=== PATIENT | female | born 1950 | race Caucasian/White ===

== ENCOUNTER → 2018-10-06 | Outpatient (CLI) | payer MEDICARE ==
[~2018-10-06] MED LIST: ATOR10TA69 PO; CHOL200074 PO; CITRACAL PO; KRIL500C PO; LISI10TA7 PO; MILK175C5 PO; MULT-1250 PO; TIOT18CA3 IH; UBID1CAP55 PO; VIT D3 PO
== END | disposition home or self-care (01) ==
LOC: RAH 08:20
PROVIDERS: ATTEND Internal Medicine Critical Care Medicine
DX: R94.5 Abnormal results of liver function studies (principal)
CPT/HCPCS: 76700

== ENCOUNTER 2022-03-03 08:14 | Outpatient (CLI) | payer OTHER ==
[~2022-03-03 08:14] MED LIST changes: +LISI10TA24 PO; -LISI10TA7 PO
[2022-03-03 10:06] LABS: HEMATOCRIT 40.3 % (36-48); MEAN CORPUSCULAR HEMOGLOBIN 32.9 pg (27.0-33.0); MEAN CORPUSCULAR HGB CONC 33.5 g/dL (32.0-36.0); MEAN CORPUSCULAR VOLUME 98.3 fL (79-99); RED BLOOD CELL COUNT(AUTO) 4.1 MIL/uL (4.00-5.50); RED CELL DISTRIBUTION WIDTH 13.2 % (11.0-15.5); WHITE BLOOD COUNT (AUTO) 7.5 K/uL (4.8-10.8)
[2022-03-03 10:13] LABS: CREATININE 0.8 mg/dL (0.5-1.5); POTASSIUM 5.3 mmol/L (3.5-5.1)
[2022-03-03 10:18] LABS: INR 0.95 (0.85-1.15); PROTHROMBIN TIME 10.4 SEC (9.6-11.6); TOTAL PROTEIN, SERUM 7.7 g/dL (6.0-8.3)
[2022-03-03 10:20] LABS: PARTIAL THROMBOPLASTIN TIME 26.9 SEC (26.3-35.5)
[2022-03-03] MEDS ORDERED: FENTANYL CITRATE PF 50 MCG/1 ML 2ML VIAL ONE (11:19)
[2022-03-03 12:30] VITALS: BP 130/72
[2022-03-03 13:00] VITALS: BP 127/75
[2022-03-03 13:30] VITALS: BP 134/82
[2022-03-03 14:00] VITALS: BP 129/85
[2022-03-03 14:30] VITALS: BP 134/72
[2022-03-03 15:30] VITALS: BP 147/76
== END 2022-03-03 15:35 | disposition home or self-care (01) ==
LOC: CANPRECLI → DAH 08:14
PROVIDERS: ATTEND Internal Medicine Medical Oncology
DX: R91.8 Other nonspecific abnormal finding of lung field (principal); I10 Essential (primary) hypertension; E78.2 Mixed hyperlipidemia; J44.9 Chronic obstructive pulmonary disease, unspecified; M19.049 Primary osteoarthritis, unspecified hand; M85.80 Other specified disorders of bone density and structure, unspecified site; Z79.899 Other long term (current) drug therapy; Z88.1 Allergy status to other antibiotic agents; Z87.891 Personal history of nicotine dependence; Z80.52 Family history of malignant neoplasm of bladder; Z79.01 Long term (current) use of anticoagulants; Z72.89 Other problems related to lifestyle
CPT/HCPCS: 32408; 80053; 85027; 85610; 85730; 36415; 71045 ×2; J3010; C1887; 32405; 77012